=== PATIENT | male | born 1980 | race American Indian/Alaskan Native ===

== ENCOUNTER 2018-09-01 09:44 | Emergency (ER) | payer BC ==
[2018-09-01 09:53] VITALS: BMI 29.7
[2018-09-01 09:56] VITALS: RESP 18
--- NOTE | 2018-09-01 11:17 | ED PDOC ---
Arrival/HPI - General Historian: Patient - History of Present Illness Narrative History of Present Illness (Text): 09/01/18 11:16 38yo male with no pmhx who present with complaint of left knee pain s/p injury yesterday. states he fell yesterday and landed on his back, but started having knee pain s/p, and not back pain. Reports working with a limp. Did not take any medication for the pain. Denies any other complaint. <Sharon Olson A - Last Filed: 09/01/18 11:29> <Matt Shane - Last Filed: 09/02/18 11:38> - General Chief Complaint: Lower Extremity Problem/Injury Time Seen by Provider: 09/01/18 09:58 Past Medical History - Provider Review Nursing Documentation Reviewed: Yes - Cardiac Hx Cardiac Disorders: No - Pulmonary Hx Respiratory Disorders: No - Neurological Hx Neurological Disorder: No - HEENT Hx HEENT Disorder: No - Renal Hx Renal Disorder: No - Endocrine/Metabolic Hx Endocrine Disorders: No - Hematological/Oncological Hx Blood Disorders: No - Integumentary Hx Dermatological Disorder: No - Musculoskeletal/Rheumatological Hx Musculoskeletal Disorders: No - Gastrointestinal Hx Gastrointestinal Disorders: No - Genitourinary/Gynecological Hx Genitourinary Disorders: No - Psychiatric Hx Psychophysiologic Disorder: No Hx Substance Use: No <Sharon Olson A - Last Filed: 09/01/18 11:29> Family/Social History - Physician Review Nursing Documentation Reviewed: Yes Family/Social History: Unknown Family HX Smoking Status: Never Smoked Hx Alcohol Use: No Hx Substance Use: No <Sharon Olson A - Last Filed: 09/01/18 11:29> Allergies/Home Meds <Sharon Olson A - Last Filed: 09/01/18 11:29> <Matt Shane - Last Filed: 09/02/18 11:38> Allergies/Adverse Reactions: Allergies doxycycline Allergy (Verified 09/01/18 09:53) ITCHING Review of Systems - Physician Review All systems were reviewed & negative as marked: Yes - Review of Systems Constitutional: Normal Eyes: Normal ENT: Normal Respiratory: Normal Cardiovascular: Normal Gastrointestinal: Normal Genitourinary Male: Normal Musculoskeletal: Arthralgias (Left knee) Skin: Normal Neurological: Normal Endocrine: Normal Hemo/Lymphatic: Normal Psychiatric: Normal <Sharon Olson A - Last Filed: 09/01/18 11:29> Physical Exam Vital Signs Reviewed: Yes Vital Signs Temp Pulse Resp BP Pulse Ox 09/01/18 09:53 97.7 F 88 18 90/67 L 98 Temperature: Afebrile Blood Pressure: Normal Pulse: Regular Respiratory Rate: Normal Appearance: Positive for: Well-Appearing, Non-Toxic, Comfortable Pain Distress: None Mental Status: Positive for: Alert and Oriented X 3 - Systems Exam Head: Present: Atraumatic, Normocephalic Pupils: Present: PERRL Extroacular Muscles: Present: EOMI Conjunctiva: Present: Normal Mouth: Present: Moist Mucous Membranes Neck: Present: Normal Range of Motion Respiratory/Chest: Present: Clear to Auscultation, Good Air Exchange. No: Respiratory Distress, Accessory Muscle Use Cardiovascular: Present: Regular Rate and Rhythm, Normal S1, S2. No: Murmurs Abdomen: No: Tenderness, Distention, Peritoneal Signs Back: Present: Normal Inspection Upper Extremity: Present: Normal Inspection. No: Cyanosis, Edema Lower Extremity: Present: NORMAL PULSES, Tenderness (Posterior left knee), Neurovascularly Intact. No: Edema, CALF TENDERNESS, Normal ROM (Limited on full extension secondary to pain), Clifford's Sign, Swelling, Deformity, Temperature Abnormalties Neurological: Present: GCS=15, CN II-XII Intact, Speech Normal Skin: Present: Warm, Dry, Normal Color. No: Rashes Psychiatric: Present: Alert, Oriented x 3, Normal Insight, Normal Concentration <Sharon Olson A - Last Filed: 09/01/18 11:29> Vital Signs Temp Pulse Resp BP Pulse Ox 09/01/18 12:14 97.9 F 89 18 101/80 99 09/01/18 11:20 97.9 F 89 18 101/60 98 09/01/18 09:53 97.7 F 88 18 90/67 L 98 <Matt Shane - Last Filed: 09/02/18 11:38> Medical Decision Making ED Course and Treatment: 09/01/18 11:29 PT in ED for left knee pain s/p trauma. His pain was controlled in ED with medication. Left xray - No acute fracture/dislocation. Result was DW the pt. Knee immobilizer placed. crutches given. Pt advised to RICE knee. Ibuprofen 600mg rx given for possible sprain. Advised to f/u with his PMD/ortho if pain persist for outpt MRI to rr/o any meniscus/ligamentous tear. - RAD Interpretation Radiology Orders: 09/01/18 09:58 KNEE WITH PATELLA LEFT 3 VIEW [RAD] Stat <Sharon Olson - Last Filed: 09/01/18 11:29> - RAD Interpretation Radiology Orders: 09/01/18 09:58 KNEE WITH PATELLA LEFT 3 VIEW [RAD] Stat - Medication Orders Current Medication Orders: Discontinued Medications Ketorolac Tromethamine (Toradol) 60 mg IM STAT STA Stop: 09/01/18 11:37 Last Admin: 09/01/18 12:09 Dose: 60 mg MAR Pain Assessment Document 09/01/18 12:09 [email or web address] (Rec: 09/01/18 12:12 [email or web address] [id number]) Pain Reassessment Is this a pain reassessment? No Sleep Is patient sleeping during reassessment? No Presence of Pain Presence of Pain Yes Pain Scale Used Protocol: PSCALES Pain Scale Used Numeric Location Left, Right or Bilateral Left Pain Location Body Site Knee Description Description Constant Intensity of Pain at present 8 Pain Behavior Facial Grimacing Aggravating Factors Changing Position Alleviating Factors/Management Medication Techniques Alleviating Factors Medication IM Administration Charges Document 09/01/18 12:09 [email or web address] (Rec: 09/01/18 12:12 [email or web address] [id number]) Injection Site MAR Injection Site Right Deltoid Charges for Administration # of IM Administrations 1 <Matt Shane - Last Filed: 09/02/18 11:38> - PA / INSTRUCTIONAL MATERIAL DIRECTOR / Resident Statement / has reviewed & agrees with the documentation as recorded. <Matt Shane - Last Filed: 09/02/18 11:38> Disposition/Present on Arrival - Present on Arrival Any Indicators Present on Arrival: No History of DVT/PE: No History of Uncontrolled Diabetes: No Urinary Catheter: No History of Decub. Ulcer: No History Surgical Site Infection Following: None - Disposition Have Diagnosis and Disposition been Completed?: Yes Disposition Time: 11:35 Patient Plan: Discharge <Sharon Olson - Last Filed: 09/01/18 11:29> <Matt Shane - Last Filed: 09/02/18 11:38> - Disposition Diagnosis: Knee sprain Disposition: HOME/ ROUTINE Condition: STABLE Discharge Instructions (ExitCare): Knee Sprain (DC) Additional Instructions: Follow up with your doctor/Orthopedist Return to ED for any new or worsening symptoms Prescriptions: RX: Ibuprofen [Motrin Tab] 600 mg PO Q6 #20 tab Referrals: Krunal Magana MD [Primary Care Provider] - Follow up with primary Mathew Posada MD [Staff Provider] - Follow up with primary Forms: [employer] (Cam[place]onian)
--- NOTE | 2018-09-01 12:06 | RAD ---
Date of service: 09/01/2018 PROCEDURE: Left Knee Radiographs. HISTORY: Pain. COMPARISON: None. FINDINGS: BONES: Normal. No fracture. JOINTS: Normal. No osteoarthritis. JOINT EFFUSION: None. OTHER FINDINGS: None. IMPRESSION: Normal radiographs of the left knee.
[2018-09-01 12:15] VITALS: BP 101/80; PULSE 89; TEMP 97.9; O2SAT 99
== END 2018-09-01 12:23 | disposition home or self-care (01) ==
LOC: ED 09:44
DX: S83.92XA Sprain of unspecified site of left knee, initial encounter (principal); W18.30XA Fall on same level, unspecified, initial encounter; Y92.9 Unspecified place or not applicable
CPT/HCPCS: 73562; 96372; 99283; J1885